=== PATIENT | female | born 1950 ===

== ENCOUNTER 2018-12-22 11:21 | Outpatient (RCR) | payer OTHER ==
[~2018-12-22] VITALS: Ht 170.2 cm; Wt 81.6 kg
[2018-12-24] MEDS ORDERED: Lidocaine 2% 20mg/ml/EPI 0.01mg/ml 20ml IV ONE (16:15)
== END 2019-01-20 | disposition home or self-care (01) ==
LOC: WCC 11:21
DX: L97.823 Non-pressure chronic ulcer of other part of left lower leg with necrosis of muscle (principal); I70.202 Unspecified atherosclerosis of native arteries of extremities, left leg; I87.312 Chronic venous hypertension (idiopathic) with ulcer of left lower extremity; I10 Essential (primary) hypertension; E78.00 Pure hypercholesterolemia, unspecified
CPT/HCPCS: 11043; 87070; 87181; 87205

== ENCOUNTER → 2018-12-29 | Outpatient (CLI) | payer OTHER ==
--- NOTE | 2018-12-29 18:05 | Diagnostic Imaging Report ---
Indication: Open wound on distal end of leg, medial to the tibia Technique: Sagittal, coronal, axial T1-weighted images and STIR images of the distal leg and ankle Comparison: none Findings: Marker venegas the location of an open wound in the medial mid to distal leg. There is some very focal edema at the site of the marker. There is more generalized circumferential edema of the subcutaneous fat, particularly posteriorly and medially. There is a short segment of distal fibular diaphysis which demonstrates some increased signal on the STIR images there is equivocally slightly decreased T1 signal in this area as well. There appears to be edema of the overlying fat, but this abnormality is on the opposite side of the leg as the open wound. No marrow signal abnormality is seen elsewhere. No focal fluid collection to suggest abscess varicose veins are seen within the medial subcutaneous fat Impression: Mildly increased STIR and equivocally minimally decreased T1 signal in the distal fibular diaphysis. Of uncertain significance, could be reactive in nature or could indicate osteomyelitis changes.. Note that this is at the same level of but at the opposite side of the leg from the open wound. Generalized edema of the subcutaneous fat, circumferential but predominantly medial and posterior. This could be vasogenic in nature or could be related to cellulitis, given stated clinical history No focal fluid collection to suggest abscess demonstrated Evidence of varicose veins
== END | disposition home or self-care (01) ==
LOC: RAD 12:23
DX: M86.9 Osteomyelitis, unspecified (principal)